=== PATIENT | male | born 1940 | race Caucasian/White ===

== ENCOUNTER 2016-11-09 08:47 | Day surgery (SDC) | payer MEDICARE, BC ==
[2016-11-08 09:38] VITALS: BP 103/56
[2016-11-08 10:17] LABS: HEMOGLOBIN 15.1 g/dL (13.7-18.0)
[2016-11-08 10:31] LABS: BLOOD UREA NITROGEN 17 mg/dL (7-18)
[~2016-11-09] VITALS: Ht 180.3 cm; Wt 100.0 kg
[~2016-11-09 08:47] MED LIST: APIX5TAB PO; ASCO500T8 PO; FURO20TA3 PO; IBUP200T64 PO; LISI2.5T PO; LISI5TAB7 PO; POTA10TA31 PO
[2016-11-09] MEDS ORDERED: LIDOCAINE 2%, 20ML ONE ×2 (09:22→09:51)
[2016-11-09] MEDS ORDERED: FENTANYL PF 100 MCG/2ML ONE ×2 (09:22→09:51)
[2016-11-09] MEDS ORDERED: MIDAZOLAM 1 MG/ML, 5ML ONE ×2 (09:22→09:51)
[2016-11-09] MEDS ORDERED: SODIUM CHLORIDE 0.9% 1,000 ML IV SCH (09:36)
[2016-11-09] MEDS ORDERED: ONDANSETRON 2MG/ML, 2ML IVPush PRN (10:00)
[2016-11-09] MEDS ORDERED: BISACODYL 10 MG SUPP PR PRN (10:00)
[2016-11-09] MEDS ORDERED: ACETAMINOPHEN 325 MG TABLET PO PRN (10:00)
[2016-11-09] MEDS ORDERED: BISACODYL 5 MG EC TABLET PO PRN (10:00)
[2016-11-09] MEDS ORDERED: ZOLPIDEM 5MG TABLET PO PRN (10:00)
[2016-11-09] MEDS ORDERED: ASPIRIN 325 MG TABLET EC PO ONE (10:00)
== END 2016-11-09 15:15 | disposition home or self-care (01) ==
LOC: STAR 08:47
PROVIDERS: ATTEND Internal Medicine Cardiovascular Disease
DX: I25.110 Atherosclerotic heart disease of native coronary artery with unstable angina pectoris (principal); I35.0 Nonrheumatic aortic (valve) stenosis; I10 Essential (primary) hypertension; I25.2 Old myocardial infarction; Z86.718 Personal history of other venous thrombosis and embolism; Z87.891 Personal history of nicotine dependence; I42.9 Cardiomyopathy, unspecified; Z83.3 Family history of diabetes mellitus; Z80.42 Family history of malignant neoplasm of prostate
CPT/HCPCS: 36415; 71020; 80048; 85025; 93005; 93454; C1769; C1894; J2250; J3010; J3490; Q9967

== ENCOUNTER → 2016-11-28 | Outpatient (CLI) | payer MEDICARE, BC ==
[~2016-11-28] MED LIST changes: +OMNIPAQUE 350 MG/ML, 100ML BOTTLE ONE
== END | disposition home or self-care (01) ==
LOC: RAD 13:57
PROVIDERS: ATTEND Thoracic Surgery (Cardiothoracic Vascular Surgery)
DX: I35.0 Nonrheumatic aortic (valve) stenosis (principal)
CPT/HCPCS: 71275; Q9967

== ENCOUNTER 2016-11-30 03:55 | Inpatient (IN) | payer MEDICARE, BC ==
[2016-11-29 16:10] LABS: ASPARTATE AMINO TRANSFERASE 26 U/L (15-37); BLOOD UREA NITROGEN 20 mg/dL (7-18)
[~2016-11-30] VITALS: Ht 180.3 cm; Wt 102.9 kg
[~2016-11-30 03:55] MED LIST changes: -OMNIPAQUE 350 MG/ML, 100ML BOTTLE ONE
[2016-11-30 04:20] VITALS: BP_SYST 112; BP_SYST 124; BP_DIAS 62; BP_DIAS 72
[2016-11-30] MEDS ORDERED: ALBUMIN HUMAN 5% 500 ML IV ONE (04:30)
[2016-11-30] MEDS ORDERED: DO NOT GIVE MC SCH (04:30)
[2016-11-30] MEDS ORDERED: CHLORHEXIDINE MOUTHWASH 15 ML UDC MM SCH (04:30)
[2016-11-30] MEDS: MUPIROCIN OINT 2%, 22GM TP SCH ×2 (05:10→22:52)
[2016-11-30] MEDS: INSULIN ASPART 100 UNITS/ML, PEN SQ-INSULIN SCH (05:11)
[2016-11-30 06:40] VITALS: BP_SYST 105; BP_SYST 112; BP_DIAS 58; BP_DIAS 72
[2016-11-30] MEDS ORDERED: DEXMEDETOMIDINE 200 MCG in SODIUM CHLORIDE 0.9% 48 ML IV SCH (07:30)
[2016-11-30] MEDS ORDERED: REGULAR INSULIN 62.5 UNITS in SODIUM CHLORIDE 0.9% 249.375 ML IV PRN ×2 (07:30→11:26)
[2016-11-30] MEDS ORDERED: EPINEPHRINE 2 MG in SODIUM CHLORIDE 0.9% 248 ML IV SCH (07:30)
[2016-11-30] MEDS ORDERED: PHENYLEPHRINE 10 MG in SODIUM CHLORIDE 0.9% 249 ML IV PRN ×2 (07:30→11:26)
[2016-11-30] MEDS ORDERED: FENTANYL PF 1000 MCG/20ML ONE (07:30)
[2016-11-30] MEDS ORDERED: MANNITOL PMX 20% 500 ML IVPB PRN (07:30)
[2016-11-30] MEDS ORDERED: MIDAZOLAM 10MG/2 ML ONE (07:30)
[2016-11-30] MEDS ORDERED: POTASSIUM CHLORIDE 80 MEQ, SODIUM BICARBONATE 8.4% 10 MEQ, MAGNESIUM SULFATE 0.5 GM, LI... IV PRN (07:30)
[2016-11-30] MEDS: SODIUM CHLORIDE FLUSH 10ML SYR IVF SCH ×3 (09:00→22:51)
[2016-11-30] MEDS ORDERED: PROPOFOL 10 MG/ML, 20ML ONE (09:36)
[2016-11-30] MEDS ORDERED: ROCURONIUM 10 MG/ML ONE (09:36)
[2016-11-30] MEDS ORDERED: PROTAMINE SULFATE 10 MG/ML, 25ML ONE (11:03)
[2016-11-30] MEDS ORDERED: ALBUMIN HUMAN 25% 50 ML ONE (11:03)
[2016-11-30] MEDS ORDERED: CALCIUM CHLORIDE 10%, 10ML SYR ONE (11:03)
[2016-11-30] MEDS ORDERED: HEPARIN 1,000 UNITS/ML, 30ML ONE (11:04)
[2016-11-30] MEDS ORDERED: AMINOCAPROIC ACID 250 MG/ML, 20ML ONE (11:04)
[2016-11-30] MEDS ORDERED: AMIODARONE 50 MG/ML, 3ML ONE (11:04)
[2016-11-30] MEDS ORDERED: LIDOCAINE 2% 100MG/5ML SYRINGE ONE (11:04)
[2016-11-30] MEDS ORDERED: VASOPRESSIN 20 UNIT/ML, 1ML ONE (11:05)
[2016-11-30] MEDS ORDERED: SODIUM CHLORIDE 0.9% 1,000 ML IV PRN (11:26)
[2016-11-30] MEDS ORDERED: DEXMEDETOMIDINE 200 MCG in SODIUM CHLORIDE 0.9% 48 ML IV PRN (11:26)
[2016-11-30] MEDS ORDERED: DOBUTAMINE 250 MG in SODIUM CHLORIDE 0.9% 230 ML IV PRN (11:26)
[2016-11-30] MEDS ORDERED: NITROGLYCERIN/D5W PMX 250 ML IV PRN (11:26)
[2016-11-30] MEDS ORDERED: CLEVIDIPINE 50 ML IV PRN (11:26)
[2016-11-30] MEDS ORDERED: BISACODYL 10 MG SUPP PR PRN (11:30)
[2016-11-30] MEDS ORDERED: INSULIN ASPART 100 UNITS/ML, PEN SQ-INSULIN PRN (11:30)
[2016-11-30] MEDS ORDERED: MEPERIDINE/PF 25MG/0.5ML IVPush PRN (11:30)
[2016-11-30] MEDS ORDERED: GLUCAGON 1 MG IM PRN (11:30)
[2016-11-30] MEDS ORDERED: DEXTROSE 4 GM TAB.CHEW PO PRN (11:30)
[2016-11-30] MEDS ORDERED: ONDANSETRON 2MG/ML, 2ML IVPush PRN (11:30)
[2016-11-30] MEDS ORDERED: ACETAMINOPHEN 650 MG SUPP PR PRN (11:30)
[2016-11-30] MEDS ORDERED: DEXTROSE 50%, 50ML SYRINGE IVPush PRN (11:30)
[2016-11-30] MEDS: KSCALE TO 4.5 IV SCH ×3 (11:30→23:30)
[2016-11-30] MEDS ORDERED: ACETAMINOPHEN 325 MG TABLET PO PRN (11:30)
[2016-11-30] MEDS ORDERED: MIDAZOLAM 1 MG/ML, 5ML IVPush PRN (11:30)
[2016-11-30] MEDS ORDERED: BISACODYL 5 MG EC TABLET PO PRN (11:30)
[2016-11-30] MEDS ORDERED: PROCHLORPERAZINE 5 MG/ML, 2ML IVPush PRN (11:30)
[2016-11-30] MEDS ORDERED: EPINEPHRINE 2 MG in SODIUM CHLORIDE 0.9% 248 ML IV PRN (11:30)
[2016-11-30] MEDS ORDERED: HYDROcodone/APAP 10/325 MG TABLET PO PRN (11:30)
[2016-11-30] MEDS ORDERED: MAGNESIUM SULFATE 1 GM in SODIUM CHLORIDE 0.9% 50 ML IVPB SCH (12:00)
[2016-11-30 12:07] LABS: ABG COLLECTION SITE ARTERIAL LINE
[2016-11-30] MEDS: SODIUM BICARBONATE 1 MEQ/ML, 50ML VIAL IV PRN ×3 (12:29→14:17)
[2016-11-30] MEDS: morphine SULFATE 10 MG/ML, 1ML IVPush PRN ×2 (12:53→18:35)
[2016-11-30] MEDS ORDERED: POTASSIUM CHLORIDE 30 MEQ in SODIUM CHLORIDE 0.9% 100 ML IV ONE (13:30)
[2016-11-30] MEDS: LACTATED RINGERS 500 ML IV PRN ×3 (15:37→19:16)
[2016-11-30] MEDS ORDERED: CEFUROXIME 1.5 GM in SODIUM CHLORIDE 0.9% 50 ML IVPB SCH (18:00)
[2016-11-30] MEDS ORDERED: MORPHINE SULFATE 4 MG/ML, 1ML ONE (18:32)
[2016-11-30] MEDS ORDERED: VANCOMYCIN 1,500 MG in SODIUM CHLORIDE 0.9% 250 ML IVPB SCH (19:30)
[2016-11-30] MEDS: OXYcodone IR 5MG TABLET PO PRN ×2 (20:09→22:58)
[2016-11-30] MEDS ORDERED: MUPIROCIN OINT 2%, 22GM NAS SCH (21:00)
[2016-11-30] MEDS ORDERED: DOCUSATE 100 MG CAPSULE PO SCH (21:00)
[2016-12-01] MEDS: INSULIN ASPART 100 UNITS/ML, PEN SQ-INSULIN SCH ×6 (00:18→21:33)
[2016-12-01] MEDS: OXYcodone IR 5MG TABLET PO PRN ×7 (00:57→21:21)
[2016-12-01 05:09] LABS: BLOOD UREA NITROGEN 16 mg/dL (7-18)
[2016-12-01] MEDS: KSCALE TO 4.5 IV SCH (05:30)
[2016-12-01 05:41] LABS: DIFF TOTAL CELLS COUNTED 100 CELL DIFF; VERIFY COUNTS? YES
[2016-12-01] MEDS ORDERED: VANCOMYCIN 1,500 MG in SODIUM CHLORIDE 0.9% 250 ML IV PRN (07:30)
[2016-12-01] MEDS ORDERED: MAGNESIUM HYDROXIDE 8%, 30ML UDC PO PRN (07:30)
[2016-12-01] MEDS ORDERED: CEFUROXIME 1.5 GM in SODIUM CHLORIDE 0.9% 50 ML IVPB PRN (07:30)
[2016-12-01] MEDS: SODIUM CHLORIDE FLUSH 10ML SYR IVF SCH ×3 (07:36→21:34)
[2016-12-01] MEDS: MUPIROCIN OINT 2%, 22GM TP SCH ×2 (07:37→21:30)
[2016-12-01] MEDS ORDERED: morphine SULFATE 10 MG/ML, 1ML IVPush PRN (08:30)
[2016-12-01] MEDS ORDERED: ACETAMINOPHEN 650 MG SUPP PR PRN (08:30)
[2016-12-01] MEDS ORDERED: VANCOMYCIN 1,500 MG in SODIUM CHLORIDE 0.9% 250 ML IVPB SCH (08:30)
[2016-12-01] MEDS ORDERED: MEPERIDINE/PF 25MG/0.5ML IVPush PRN (08:30)
[2016-12-01] MEDS ORDERED: CEFUROXIME 1.5 GM in SODIUM CHLORIDE 0.9% 50 ML IVPB SCH (08:30)
[2016-12-01] MEDS ORDERED: MIDAZOLAM 1 MG/ML, 5ML IVPush PRN (08:30)
[2016-12-01] MEDS ORDERED: PROCHLORPERAZINE 5 MG/ML, 2ML IVPush PRN (08:30)
[2016-12-01] MEDS ORDERED: BISACODYL 5 MG EC TABLET PO PRN (08:30)
[2016-12-01] MEDS: DOCUSATE 100 MG CAPSULE PO SCH ×2 (08:54→21:25)
[2016-12-01] MEDS: FUROSEMIDE 20 MG/2 ML IV SCH ×2 (08:55→21:26)
[2016-12-01] MEDS: PANTOPRAZOLE 40 MG IV IVPush SCH (08:55)
[2016-12-01] MEDS ORDERED: PANTOPRAZOLE 40 MG IV IVPush SCH (09:00)
[2016-12-01] MEDS ORDERED: ASPIRIN 81 MG TABLET EC PO SCH (09:00)
[2016-12-01] MEDS: MAGNESIUM SULFATE 1 GM in SODIUM CHLORIDE 0.9% 50 ML IVPB SCH (09:04)
[2016-12-01] MEDS: HYDROcodone/APAP 10/325 MG TABLET PO PRN ×2 (10:24→16:00)
[2016-12-01] MEDS ORDERED: CHLORHEXIDINE MOUTHWASH 15 ML UDC MM SCH (15:00)
[2016-12-01] MEDS ORDERED: WARFARIN 5 MG TABLET PO-COUM SCH (18:00)
[2016-12-01 19:12] VITALS: BP 126/71
[2016-12-02 01:46] VITALS: BP 120/69
[2016-12-02 03:44] LABS: BLOOD UREA NITROGEN 18 mg/dL (7-18)
[2016-12-02] MEDS: OXYcodone IR 5MG TABLET PO PRN ×2 (04:37→23:45)
[2016-12-02 06:32] VITALS: BP 114/58
[2016-12-02 08:01] VITALS: BP 110/66
[2016-12-02] MEDS: HYDROcodone/APAP 10/325 MG TABLET PO PRN ×2 (08:11→16:19)
[2016-12-02] MEDS: ASPIRIN 81 MG TABLET EC PO SCH (08:12)
[2016-12-02] MEDS: SODIUM CHLORIDE FLUSH 10ML SYR IVF SCH ×2 (08:13→23:28)
[2016-12-02] MEDS: DOCUSATE 100 MG CAPSULE PO SCH ×2 (08:13→23:33)
[2016-12-02] MEDS: FUROSEMIDE 20 MG/2 ML IV SCH ×2 (08:13→18:00)
[2016-12-02] MEDS: PANTOPRAZOLE 40 MG IV IVPush SCH (08:14)
[2016-12-02] MEDS: MUPIROCIN OINT 2%, 22GM TP SCH ×2 (08:14→23:31)
[2016-12-02] MEDS ORDERED: METOCLOPRAMIDE 10MG TABLET PO PRN (10:00)
[2016-12-02] MEDS ORDERED: FENTANYL PF 100 MCG/2ML ONE (11:50)
[2016-12-02] MEDS ORDERED: MIDAZOLAM 1 MG/ML, 5ML ONE (11:51)
[2016-12-02] MEDS ORDERED: HEPARIN 1,000 UNITS/ML, 10ML ONE (11:51)
[2016-12-02] MEDS ORDERED: LIDOCAINE 2%, 20ML ONE (11:51)
[2016-12-02] MEDS ORDERED: VERAPAMIL 2.5 MG/ML, 2ML ONE (11:51)
[2016-12-02] MEDS ORDERED: TICAGRELOR 90 MG TABLET ONE (11:51)
[2016-12-02] MEDS ORDERED: BIVALIRUDIN 250 MG ONE (11:51)
[2016-12-02] MEDS ORDERED: SODIUM CHLORIDE 0.9% 1,000 ML IV SCH (14:59)
[2016-12-02 15:23] VITALS: BP 121/69
[2016-12-02] MEDS: MAGNESIUM SULFATE 1 GM in SODIUM CHLORIDE 0.9% 50 ML IVPB SCH (16:19)
[2016-12-02] MEDS ORDERED: WARFARIN 5 MG TABLET PO-COUM SCH (18:00)
[2016-12-02] MEDS: INSULIN ASPART 100 UNITS/ML, PEN SQ-INSULIN SCH ×2 (18:01→23:41)
[2016-12-02 18:45] VITALS: BP 106/62
[2016-12-02] MEDS ORDERED: FUROSEMIDE 20 MG/2 ML IV ONE (23:00)
[2016-12-02] MEDS: TICAGRELOR 90 MG TABLET PO SCH (23:32)
[2016-12-03 02:20] VITALS: BP 114/68
[2016-12-03] MEDS: HYDROcodone/APAP 10/325 MG TABLET PO PRN ×4 (03:46→21:30)
[2016-12-03 04:27] LABS: BLOOD UREA NITROGEN 20 mg/dL (7-18)
[2016-12-03] MEDS: INSULIN ASPART 100 UNITS/ML, PEN SQ-INSULIN SCH ×4 (07:36→21:40)
[2016-12-03] MEDS: OXYcodone IR 5MG TABLET PO PRN ×3 (07:36→17:16)
[2016-12-03 08:25] VITALS: BP 128/77
[2016-12-03] MEDS: DOCUSATE 100 MG CAPSULE PO SCH ×2 (09:15→21:30)
[2016-12-03] MEDS: MUPIROCIN OINT 2%, 22GM TP SCH ×2 (09:15→21:33)
[2016-12-03] MEDS: ASPIRIN 81 MG TABLET EC PO SCH (09:15)
[2016-12-03] MEDS: TICAGRELOR 90 MG TABLET PO SCH ×2 (09:15→21:30)
[2016-12-03] MEDS: FUROSEMIDE 20 MG/2 ML IV SCH (09:15)
[2016-12-03] MEDS: SODIUM CHLORIDE FLUSH 10ML SYR IVF SCH ×2 (09:19→21:30)
[2016-12-03] MEDS: GUAIFENESIN 200 MG TABLET PO SCH ×3 (11:34→21:31)
[2016-12-03 13:26] VITALS: BP 118/67
[2016-12-03] MEDS ORDERED: WARFARIN 5 MG TABLET PO-COUM SCH (18:00)
[2016-12-03 19:12] VITALS: BP 103/58
[2016-12-04 01:47] VITALS: BP 120/74
[2016-12-04] MEDS: OXYcodone IR 5MG TABLET PO PRN ×2 (03:59→14:49)
[2016-12-04] MEDS: ALBUTEROL SULFATE 2.5 MG/3 ML NPPB SCH ×5 (04:44→19:35)
[2016-12-04] MEDS: GUAIFENESIN 200 MG TABLET PO SCH ×4 (05:39→20:55)
[2016-12-04 06:05] LABS: BLOOD UREA NITROGEN 21 mg/dL (7-18)
[2016-12-04] MEDS: INSULIN ASPART 100 UNITS/ML, PEN SQ-INSULIN SCH ×6 (07:00→20:57)
[2016-12-04 07:08] VITALS: BP 128/76
[2016-12-04] MEDS: FUROSEMIDE 20 MG/2 ML IV SCH (09:30)
[2016-12-04] MEDS: CARVEDILOL 3.125 MG TABLET PO SCH ×2 (09:30→17:01)
[2016-12-04] MEDS: DOCUSATE 100 MG CAPSULE PO SCH ×2 (09:30→20:55)
[2016-12-04] MEDS: ASPIRIN 81 MG TABLET EC PO SCH (09:30)
[2016-12-04] MEDS: TICAGRELOR 90 MG TABLET PO SCH ×2 (09:30→20:55)
[2016-12-04] MEDS: SODIUM CHLORIDE FLUSH 10ML SYR IVF SCH ×2 (09:31→21:07)
[2016-12-04] MEDS: MUPIROCIN OINT 2%, 22GM TP SCH ×2 (09:33→20:55)
[2016-12-04] MEDS: LISINOPRIL 5 MG TABLET PO SCH (09:33)
[2016-12-04] MEDS: SPIRONOLACTONE 25 MG TABLET PO SCH (10:49)
[2016-12-04] MEDS: POTASSIUM CHLORIDE 20 MEQ TAB.ER.PRT PO SCH (10:49)
[2016-12-04] MEDS ORDERED: BISACODYL 10 MG SUPP PR PRN (12:00)
[2016-12-04] MEDS ORDERED: POTASSIUM CHLORIDE 20 MEQ TAB.ER.PRT PO ONE (12:00)
[2016-12-04] MEDS: BISACODYL 10 MG SUPP PR PRN (12:24)
[2016-12-04 13:55] VITALS: BP 126/80
[2016-12-04] MEDS: ONDANSETRON 2MG/ML, 2ML IVPush PRN (16:45)
[2016-12-04] MEDS ORDERED: WARFARIN 10 MG TABLET PO-COUM SCH (18:00)
[2016-12-04 20:20] VITALS: BP 131/78
[2016-12-04] MEDS: ATORVASTATIN 40 MG TABLET PO SCH (20:55)
[2016-12-04] MEDS: HYDROcodone/APAP 10/325 MG TABLET PO PRN (20:55)
[2016-12-05 01:50] VITALS: BP 129/80
[2016-12-05] MEDS: ONDANSETRON 2MG/ML, 2ML IVPush PRN (04:08)
[2016-12-05 06:09] LABS: BLOOD UREA NITROGEN 21 mg/dL (7-18)
[2016-12-05] MEDS: CARVEDILOL 3.125 MG TABLET PO SCH ×2 (06:27→16:42)
[2016-12-05] MEDS: GUAIFENESIN 200 MG TABLET PO SCH ×4 (06:27→21:59)
[2016-12-05] MEDS: OXYcodone IR 5MG TABLET PO PRN ×2 (06:27→15:17)
[2016-12-05] MEDS: ALBUTEROL SULFATE 2.5 MG/3 ML NPPB SCH (07:00)
[2016-12-05 07:07] VITALS: BP 127/83
[2016-12-05] MEDS: DOCUSATE 100 MG CAPSULE PO SCH ×2 (07:22→22:00)
[2016-12-05] MEDS: LISINOPRIL 5 MG TABLET PO SCH (07:22)
[2016-12-05] MEDS: SPIRONOLACTONE 25 MG TABLET PO SCH (07:22)
[2016-12-05] MEDS: POTASSIUM CHLORIDE 20 MEQ TAB.ER.PRT PO SCH (07:22)
[2016-12-05] MEDS: INSULIN ASPART 100 UNITS/ML, PEN SQ-INSULIN SCH ×4 (07:22→21:00)
[2016-12-05] MEDS: SODIUM CHLORIDE FLUSH 10ML SYR IVF SCH ×2 (07:22→21:57)
[2016-12-05] MEDS: ASPIRIN 81 MG TABLET EC PO SCH (07:23)
[2016-12-05] MEDS: MUPIROCIN OINT 2%, 22GM TP SCH ×2 (07:23→22:00)
[2016-12-05] MEDS: FUROSEMIDE 20 MG/2 ML IV SCH (07:23)
[2016-12-05] MEDS: TICAGRELOR 90 MG TABLET PO SCH ×2 (07:46→22:00)
[2016-12-05 16:02] VITALS: BP 143/82
[2016-12-05] MEDS ORDERED: WARFARIN 5 MG TABLET PO-COUM ONE (18:00)
[2016-12-05 19:45] VITALS: BP 115/73
[2016-12-05] MEDS: ATORVASTATIN 40 MG TABLET PO SCH (22:00)
[2016-12-06 02:19] VITALS: BP 114/68
[2016-12-06] MEDS: CARVEDILOL 3.125 MG TABLET PO SCH ×2 (06:21→18:10)
[2016-12-06] MEDS: GUAIFENESIN 200 MG TABLET PO SCH ×4 (06:21→20:41)
[2016-12-06 06:27] LABS: BLOOD UREA NITROGEN 24 mg/dL (7-18)
[2016-12-06] MEDS: OXYcodone IR 5MG TABLET PO PRN (06:27)
[2016-12-06 06:47] VITALS: BP 114/73
[2016-12-06] MEDS: INSULIN ASPART 100 UNITS/ML, PEN SQ-INSULIN SCH ×4 (08:13→20:42)
[2016-12-06] MEDS: MUPIROCIN OINT 2%, 22GM TP SCH ×2 (08:13→20:42)
[2016-12-06] MEDS: SODIUM CHLORIDE FLUSH 10ML SYR IVF SCH ×2 (08:14→20:43)
[2016-12-06] MEDS: LISINOPRIL 5 MG TABLET PO SCH (08:14)
[2016-12-06] MEDS: TICAGRELOR 90 MG TABLET PO SCH (08:14)
[2016-12-06] MEDS: ASPIRIN 81 MG TABLET EC PO SCH (08:14)
[2016-12-06] MEDS: SPIRONOLACTONE 25 MG TABLET PO SCH (08:14)
[2016-12-06] MEDS: POTASSIUM CHLORIDE 20 MEQ TAB.ER.PRT PO SCH (08:14)
[2016-12-06] MEDS: DOCUSATE 100 MG CAPSULE PO SCH ×2 (08:16→20:42)
[2016-12-06 13:35] VITALS: BP 95/54
[2016-12-06] MEDS: ALBUTEROL SULFATE 2.5 MG/3 ML NPPB PRN (15:29)
[2016-12-06] MEDS ORDERED: WARFARIN 1 MG TABLET PO-COUM ONE (18:00)
[2016-12-06] MEDS: ALBUTEROL/IPRATROPIUM 2.5MG/0.5MG, 3 ML NPPB SCH (20:00)
[2016-12-06 20:01] VITALS: BP 106/63
[2016-12-06] MEDS: ATORVASTATIN 40 MG TABLET PO SCH (20:41)
[2016-12-07 00:49] VITALS: BP 94/56
[2016-12-07] MEDS: GUAIFENESIN 200 MG TABLET PO SCH ×4 (06:16→21:31)
[2016-12-07] MEDS: CARVEDILOL 3.125 MG TABLET PO SCH ×2 (06:16→18:34)
[2016-12-07 06:24] LABS: BLOOD UREA NITROGEN 25 mg/dL (7-18)
[2016-12-07] MEDS: ALBUTEROL/IPRATROPIUM 2.5MG/0.5MG, 3 ML NPPB SCH ×4 (07:00→20:50)
[2016-12-07 07:36] VITALS: BP 98/62
[2016-12-07] MEDS: INSULIN ASPART 100 UNITS/ML, PEN SQ-INSULIN SCH ×4 (07:55→21:47)
[2016-12-07] MEDS ORDERED: HOLD COUMADIN MC PRN (08:00)
[2016-12-07 08:12] VITALS: BP 113/68
[2016-12-07] MEDS: DOCUSATE 100 MG CAPSULE PO SCH ×2 (08:13→21:31)
[2016-12-07] MEDS: POTASSIUM CHLORIDE 20 MEQ TAB.ER.PRT PO SCH (08:13)
[2016-12-07] MEDS: LISINOPRIL 5 MG TABLET PO SCH (08:13)
[2016-12-07] MEDS: MUPIROCIN OINT 2%, 22GM TP SCH ×2 (08:14→21:31)
[2016-12-07] MEDS: SODIUM CHLORIDE FLUSH 10ML SYR IVF SCH ×2 (08:14→21:00)
[2016-12-07] MEDS: SPIRONOLACTONE 25 MG TABLET PO SCH (08:14)
[2016-12-07] MEDS: ALBUTEROL SULFATE 2.5 MG/3 ML NPPB PRN (08:22)
[2016-12-07] MEDS: APAP/CODEINE 300/30MG TABLET PO PRN (11:23)
[2016-12-07 13:25] VITALS: BP 100/61
[2016-12-07 18:33] VITALS: BP 105/60
[2016-12-07] MEDS: ATORVASTATIN 40 MG TABLET PO SCH (21:31)
[2016-12-07] MEDS: CLOPIDOGREL 75 MG TABLET PO SCH (21:31)
[2016-12-08] MEDS: APAP/CODEINE 300/30MG TABLET PO PRN ×4 (01:06→21:02)
[2016-12-08 01:44] VITALS: BP 91/57
[2016-12-08 05:29] LABS: BLOOD UREA NITROGEN 22 mg/dL (7-18)
[2016-12-08 06:18] VITALS: BP 95/59
[2016-12-08] MEDS: GUAIFENESIN 200 MG TABLET PO SCH ×4 (06:20→21:03)
[2016-12-08] MEDS: CARVEDILOL 3.125 MG TABLET PO SCH ×2 (06:20→18:15)
[2016-12-08 06:49] VITALS: BP 111/67
[2016-12-08] MEDS: ALBUTEROL/IPRATROPIUM 2.5MG/0.5MG, 3 ML NPPB SCH ×4 (06:50→20:10)
[2016-12-08] MEDS: INSULIN ASPART 100 UNITS/ML, PEN SQ-INSULIN SCH ×4 (07:00→21:02)
[2016-12-08] MEDS: MUPIROCIN OINT 2%, 22GM TP SCH ×2 (09:00→21:00)
[2016-12-08] MEDS: DOCUSATE 100 MG CAPSULE PO SCH ×2 (09:59→21:02)
[2016-12-08] MEDS: CLOPIDOGREL 75 MG TABLET PO SCH (09:59)
[2016-12-08] MEDS: LISINOPRIL 5 MG TABLET PO SCH (09:59)
[2016-12-08] MEDS: SODIUM CHLORIDE FLUSH 10ML SYR IVF SCH ×2 (09:59→21:00)
[2016-12-08] MEDS: SPIRONOLACTONE 25 MG TABLET PO SCH (09:59)
[2016-12-08] MEDS: POTASSIUM CHLORIDE 20 MEQ TAB.ER.PRT PO SCH (09:59)
[2016-12-08] MEDS: METOCLOPRAMIDE 10MG TABLET PO SCH ×3 (11:50→21:03)
[2016-12-08 13:03] VITALS: BP 97/59
[2016-12-08] MEDS ORDERED: WARFARIN 5 MG TABLET PO-COUM ONE (18:00)
[2016-12-08] MEDS: KETOROLAC 30 MG/1 ML IVPush PRN (18:15)
[2016-12-08] MEDS: ATORVASTATIN 40 MG TABLET PO SCH (21:02)
[2016-12-08 21:23] VITALS: BP 89/60
[2016-12-09 02:48] VITALS: BP 90/58
[2016-12-09 05:54] LABS: BLOOD UREA NITROGEN 20 mg/dL (7-18)
[2016-12-09 06:16] VITALS: BP 97/57
[2016-12-09] MEDS: CARVEDILOL 3.125 MG TABLET PO SCH ×2 (06:17→17:18)
[2016-12-09] MEDS: METOCLOPRAMIDE 10MG TABLET PO SCH ×4 (06:17→20:23)
[2016-12-09] MEDS: APAP/CODEINE 300/30MG TABLET PO PRN ×3 (06:18→22:43)
[2016-12-09] MEDS: GUAIFENESIN 200 MG TABLET PO SCH ×4 (06:20→20:22)
[2016-12-09] MEDS: INSULIN ASPART 100 UNITS/ML, PEN SQ-INSULIN SCH ×4 (07:00→20:22)
[2016-12-09 07:27] VITALS: BP_SYST 103; BP_SYST 90; BP_DIAS 103; BP_DIAS 66
[2016-12-09] MEDS: ALBUTEROL/IPRATROPIUM 2.5MG/0.5MG, 3 ML NPPB SCH ×4 (08:15→19:40)
[2016-12-09] MEDS: MUPIROCIN OINT 2%, 22GM TP SCH ×2 (09:00→20:22)
[2016-12-09] MEDS: SODIUM CHLORIDE FLUSH 10ML SYR IVF SCH ×2 (09:04→20:22)
[2016-12-09] MEDS: POTASSIUM CHLORIDE 20 MEQ TAB.ER.PRT PO SCH (09:04)
[2016-12-09] MEDS: DOCUSATE 100 MG CAPSULE PO SCH ×2 (09:04→20:21)
[2016-12-09] MEDS: SPIRONOLACTONE 25 MG TABLET PO SCH (09:05)
[2016-12-09] MEDS: CLOPIDOGREL 75 MG TABLET PO SCH (09:05)
[2016-12-09] MEDS: LISINOPRIL 5 MG TABLET PO SCH (09:05)
[2016-12-09] MEDS: BISACODYL 10 MG SUPP PR PRN (09:06)
[2016-12-09] MEDS: KETOROLAC 30 MG/1 ML IVPush PRN ×2 (09:06→20:16)
[2016-12-09 14:43] VITALS: BP 108/62
[2016-12-09] MEDS ORDERED: WARFARIN 5 MG TABLET PO-COUM ONE (18:00)
[2016-12-09] MEDS: ATORVASTATIN 40 MG TABLET PO SCH (20:21)
[2016-12-09 20:25] VITALS: BP 91/50
[2016-12-10 02:33] VITALS: BP 96/62
[2016-12-10 05:57] LABS: BLOOD UREA NITROGEN 19 mg/dL (7-18)
[2016-12-10] MEDS: KETOROLAC 30 MG/1 ML IVPush PRN ×2 (06:15→20:57)
[2016-12-10] MEDS: CARVEDILOL 3.125 MG TABLET PO SCH ×2 (06:15→17:11)
[2016-12-10] MEDS: METOCLOPRAMIDE 10MG TABLET PO SCH ×4 (06:35→22:57)
[2016-12-10] MEDS: GUAIFENESIN 200 MG TABLET PO SCH ×4 (06:35→20:29)
[2016-12-10] MEDS: INSULIN ASPART 100 UNITS/ML, PEN SQ-INSULIN SCH ×4 (07:00→20:37)
[2016-12-10 07:24] VITALS: BP 91/57
[2016-12-10] MEDS: ALBUTEROL/IPRATROPIUM 2.5MG/0.5MG, 3 ML NPPB SCH ×4 (07:35→20:00)
[2016-12-10] MEDS: MUPIROCIN OINT 2%, 22GM TP SCH ×2 (08:02→20:06)
[2016-12-10] MEDS: POTASSIUM CHLORIDE 20 MEQ TAB.ER.PRT PO SCH (08:41)
[2016-12-10] MEDS: LISINOPRIL 5 MG TABLET PO SCH (08:41)
[2016-12-10] MEDS: DOCUSATE 100 MG CAPSULE PO SCH ×3 (08:41→20:57)
[2016-12-10] MEDS: SODIUM CHLORIDE FLUSH 10ML SYR IVF SCH ×2 (08:41→20:29)
[2016-12-10] MEDS: CLOPIDOGREL 75 MG TABLET PO SCH (08:41)
[2016-12-10] MEDS: SPIRONOLACTONE 25 MG TABLET PO SCH (08:41)
[2016-12-10 13:37] VITALS: BP 99/62
[2016-12-10 17:13] VITALS: BP 104/64
[2016-12-10] MEDS ORDERED: WARFARIN 2.5 MG TABLET PO-COUM ONE (18:00)
[2016-12-10 18:56] VITALS: BP 109/68
[2016-12-10] MEDS: ATORVASTATIN 40 MG TABLET PO SCH (20:29)
[2016-12-10] MEDS: APAP/CODEINE 300/30MG TABLET PO PRN (22:54)
[2016-12-11 01:19] VITALS: BP 104/68
[2016-12-11] MEDS: CARVEDILOL 3.125 MG TABLET PO SCH ×3 (05:16→20:54)
[2016-12-11] MEDS: GUAIFENESIN 200 MG TABLET PO SCH ×4 (05:16→20:55)
[2016-12-11] MEDS: METOCLOPRAMIDE 10MG TABLET PO SCH ×4 (05:18→20:55)
[2016-12-11 05:36] LABS: BLOOD UREA NITROGEN 20 mg/dL (7-18)
[2016-12-11 07:29] VITALS: BP 106/65
[2016-12-11] MEDS: ALBUTEROL/IPRATROPIUM 2.5MG/0.5MG, 3 ML NPPB SCH ×4 (07:50→20:00)
[2016-12-11] MEDS: INSULIN ASPART 100 UNITS/ML, PEN SQ-INSULIN SCH ×4 (09:12→20:55)
[2016-12-11] MEDS: SODIUM CHLORIDE FLUSH 10ML SYR IVF SCH ×2 (09:13→20:55)
[2016-12-11] MEDS: POTASSIUM CHLORIDE 20 MEQ TAB.ER.PRT PO SCH (09:13)
[2016-12-11] MEDS: CLOPIDOGREL 75 MG TABLET PO SCH (09:14)
[2016-12-11] MEDS: LISINOPRIL 5 MG TABLET PO SCH (09:14)
[2016-12-11] MEDS: SPIRONOLACTONE 25 MG TABLET PO SCH (09:14)
[2016-12-11] MEDS: DOCUSATE 100 MG CAPSULE PO SCH ×2 (09:14→20:55)
[2016-12-11] MEDS: MUPIROCIN OINT 2%, 22GM TP SCH ×2 (09:14→20:55)
[2016-12-11] MEDS: ACETAMINOPHEN 325 MG TABLET PO PRN (11:12)
[2016-12-11] MEDS: KETOROLAC 30 MG/1 ML IVPush PRN (16:34)
[2016-12-11] MEDS ORDERED: WARFARIN 2.5 MG TABLET PO-COUM ONE (18:00)
[2016-12-11] MEDS: ATORVASTATIN 40 MG TABLET PO SCH (20:54)
[2016-12-11 21:30] VITALS: BP 104/60
[2016-12-12 01:20] VITALS: BP 107/71
[2016-12-12] MEDS: GUAIFENESIN 200 MG TABLET PO SCH ×4 (05:59→21:00)
[2016-12-12] MEDS: CARVEDILOL 3.125 MG TABLET PO SCH ×2 (06:00→18:00)
[2016-12-12 06:43] LABS: BLOOD UREA NITROGEN 38 mg/dL (7-18)
[2016-12-12] MEDS: ALBUTEROL/IPRATROPIUM 2.5MG/0.5MG, 3 ML NPPB SCH ×2 (06:50→10:13)
[2016-12-12] MEDS: INSULIN ASPART 100 UNITS/ML, PEN SQ-INSULIN SCH (07:00)
[2016-12-12 07:02] VITALS: BP 116/71
[2016-12-12] MEDS: MUPIROCIN OINT 2%, 22GM TP SCH (07:24)
[2016-12-12] MEDS: DOCUSATE 100 MG CAPSULE PO SCH ×2 (08:01→21:00)
[2016-12-12] MEDS: LISINOPRIL 5 MG TABLET PO SCH (08:02)
[2016-12-12] MEDS: SPIRONOLACTONE 25 MG TABLET PO SCH (08:04)
[2016-12-12] MEDS: SODIUM CHLORIDE FLUSH 10ML SYR IVF SCH ×2 (08:13→21:00)
[2016-12-12] MEDS: POTASSIUM CHLORIDE 20 MEQ TAB.ER.PRT PO SCH (08:13)
[2016-12-12] MEDS ORDERED: SODIUM CHLORIDE 0.9% 1,000 ML IV SCH (08:30)
[2016-12-12] MEDS: CLOPIDOGREL 75 MG TABLET PO SCH (09:00)
[2016-12-12] MEDS: ASPIRIN 81 MG TABLET CHEW PO SCH (09:00)
[2016-12-12 12:09] VITALS: BP 105/64
[2016-12-12] MEDS ORDERED: SODIUM CHLORIDE 0.9%, 500ML IVBOLUS ONE (16:30)
[2016-12-12] MEDS ORDERED: OMNIPAQUE 350 MG/ML, 100ML BOTTLE ONE (17:19)
[2016-12-12] MEDS ORDERED: WARFARIN 2.5 MG TABLET PO-COUM ONE (18:00)
[2016-12-12 18:48] VITALS: BP 108/62
[2016-12-12 19:58] VITALS: BP 146/63
[2016-12-12] MEDS: ATORVASTATIN 40 MG TABLET PO SCH (21:00)
[2016-12-12] MEDS ORDERED: MIDAZOLAM 1 MG/ML, 2ML IVPush ONE (22:00)
[2016-12-13 02:30] VITALS: BP 102/66
[2016-12-13] MEDS: ASPIRIN 81 MG TABLET CHEW PO SCH (05:36)
[2016-12-13] MEDS: GUAIFENESIN 200 MG TABLET PO SCH ×4 (05:36→21:00)
[2016-12-13 05:52] LABS: BLOOD UREA NITROGEN 27 mg/dL (7-18)
[2016-12-13] MEDS: POTASSIUM CHLORIDE 20 MEQ TAB.ER.PRT PO SCH (08:00)
[2016-12-13 08:01] VITALS: BP 112/65
[2016-12-13] MEDS: SPIRONOLACTONE 25 MG TABLET PO SCH (08:13)
[2016-12-13] MEDS: DOCUSATE 100 MG CAPSULE PO SCH ×2 (08:14→21:00)
[2016-12-13] MEDS: LISINOPRIL 5 MG TABLET PO SCH (08:14)
[2016-12-13] MEDS: CLOPIDOGREL 75 MG TABLET PO SCH (08:14)
[2016-12-13] MEDS: CARVEDILOL 3.125 MG TABLET PO SCH ×2 (08:14→16:04)
[2016-12-13] MEDS: SODIUM CHLORIDE 0.9% 1,000 ML IV SCH ×2 (09:47→20:51)
[2016-12-13] MEDS: SODIUM CHLORIDE FLUSH 10ML SYR IVF SCH ×2 (09:47→21:00)
[2016-12-13] MEDS: FILTER, DISP 1.2 MICRON FOR TPN/PVN IV PRN (12:27)
[2016-12-13 15:18] VITALS: BP 92/57
[2016-12-13] MEDS ORDERED: DEXTROSE 10% 500 ML IV PRN (17:00)
[2016-12-13] MEDS ORDERED: FAT EMULSIONS IV SCH (17:00)
[2016-12-13] MEDS ORDERED: DEXTROSE 70% IV SCH (17:00)
[2016-12-13] MEDS ORDERED: [UNRECOGNIZED DRUG - OTHER] IV SCH (17:00)
[2016-12-13] MEDS ORDERED: DEXTROSE 50%, 50ML SYRINGE IVPush PRN (17:00)
[2016-12-13] MEDS ORDERED: AMINO ACID 10% IV SCH (17:00)
[2016-12-13] MEDS ORDERED: WARFARIN 2 MG TABLET PO-COUM ONE (18:00)
[2016-12-13 20:10] VITALS: BP 109/64
[2016-12-13] MEDS: ATORVASTATIN 40 MG TABLET PO SCH (21:00)
[2016-12-13] MEDS: INSULIN REGULAR LOW DOSE Q6H X 48HRS SQ-INSULIN SCH (21:01)
[2016-12-13] MEDS ORDERED: LORazepam 2 MG/ML, 1ML IVPush ONE (22:00)
[2016-12-14] VITALS (12 sets, daily range): BP systolic 108–119; BP diastolic 65–73
[2016-12-14] MEDS: INSULIN REGULAR LOW DOSE Q6H X 48HRS SQ-INSULIN SCH ×4 (02:54→21:09)
[2016-12-14 05:00] LABS: BLOOD UREA NITROGEN 17 mg/dL (7-18)
[2016-12-14] MEDS: ASPIRIN 81 MG TABLET CHEW PO SCH (06:00)
[2016-12-14] MEDS: GUAIFENESIN 200 MG TABLET PO SCH ×4 (06:00→20:50)
[2016-12-14] MEDS: CARVEDILOL 3.125 MG TABLET PO SCH ×2 (06:00→16:19)
[2016-12-14] MEDS: GUAIFENESIN/DM 200-20MG, 10ML UDC PO PRN ×2 (08:00→23:51)
[2016-12-14] MEDS: LISINOPRIL 5 MG TABLET PO SCH ×2 (08:24→08:32)
[2016-12-14] MEDS: POTASSIUM CHLORIDE 20 MEQ TAB.ER.PRT PO SCH (08:25)
[2016-12-14] MEDS: SODIUM CHLORIDE FLUSH 10ML SYR IVF SCH ×2 (08:25→21:09)
[2016-12-14] MEDS: DOCUSATE 100 MG CAPSULE PO SCH ×2 (08:25→20:50)
[2016-12-14] MEDS: CLOPIDOGREL 75 MG TABLET PO SCH (08:31)
[2016-12-14] MEDS: SPIRONOLACTONE 25 MG TABLET PO SCH (08:31)
[2016-12-14] MEDS ORDERED: SODIUM CHLORIDE 0.9% 1,000 ML IV SCH (09:00)
[2016-12-14] MEDS: ALBUTEROL SULFATE 2.5 MG/3 ML NPPB PRN ×2 (14:35→18:50)
[2016-12-14] MEDS ORDERED: DEXTROSE 70% IV SCH (17:00)
[2016-12-14] MEDS ORDERED: FAT EMULSIONS IV SCH (17:00)
[2016-12-14] MEDS ORDERED: [UNRECOGNIZED DRUG - OTHER] IV SCH (17:00)
[2016-12-14] MEDS ORDERED: AMINO ACID 10% IV SCH (17:00)
[2016-12-14] MEDS ORDERED: WARFARIN 5 MG TABLET PO-COUM ONE (18:00)
[2016-12-14] MEDS: ATORVASTATIN 40 MG TABLET PO SCH (20:50)
[2016-12-15 02:10] VITALS: BP 191/72
[2016-12-15] MEDS: INSULIN REGULAR LOW DOSE Q6H X 48HRS SQ-INSULIN SCH ×2 (03:00→09:13)
[2016-12-15] MEDS: ASPIRIN 81 MG TABLET CHEW PO SCH (04:46)
[2016-12-15] MEDS: GUAIFENESIN 200 MG TABLET PO SCH ×4 (04:46→21:36)
[2016-12-15] MEDS: CARVEDILOL 3.125 MG TABLET PO SCH ×2 (04:46→17:59)
[2016-12-15 06:55] LABS: BLOOD UREA NITROGEN 11 mg/dL (7-18)
[2016-12-15 07:19] VITALS: BP 124/74
[2016-12-15] MEDS: POTASSIUM CHLORIDE 20 MEQ TAB.ER.PRT PO SCH ×2 (08:00→09:10)
[2016-12-15] MEDS ORDERED: CLOPIDOGREL 75 MG TABLET PO ONE (08:30)
[2016-12-15] MEDS: DOCUSATE 100 MG CAPSULE PO SCH ×2 (09:00→21:00)
[2016-12-15] MEDS: SODIUM CHLORIDE FLUSH 10ML SYR IVF SCH ×2 (09:10→21:36)
[2016-12-15] MEDS: SPIRONOLACTONE 25 MG TABLET PO SCH (09:10)
[2016-12-15] MEDS: PANTOPRAZOLE 40 MG IV IVPush SCH (09:10)
[2016-12-15] MEDS: CLOPIDOGREL 75 MG TABLET PO SCH (09:10)
[2016-12-15] MEDS: LISINOPRIL 5 MG TABLET PO SCH (09:10)
[2016-12-15] MEDS: ALBUTEROL SULFATE 2.5 MG/3 ML NPPB PRN ×3 (10:24→20:26)
[2016-12-15] MEDS: INSULIN ASPART 100 UNITS/ML, PEN SQ-INSULIN SCH ×3 (11:00→21:37)
[2016-12-15] MEDS: POTASSIUM CHLORIDE 20 MEQ PACKET PO SCH (12:14)
[2016-12-15 13:17] VITALS: BP 121/70
[2016-12-15] MEDS ORDERED: FAT EMULSIONS IV SCH ×2 (17:00)
[2016-12-15] MEDS ORDERED: DEXTROSE 70% IV SCH ×2 (17:00)
[2016-12-15] MEDS ORDERED: AMINO ACID 10% IV SCH ×2 (17:00)
[2016-12-15] MEDS ORDERED: [UNRECOGNIZED DRUG - OTHER] IV SCH ×2 (17:00)
[2016-12-15] MEDS: FILTER, DISP 1.2 MICRON FOR TPN/PVN IV PRN (17:59)
[2016-12-15] MEDS ORDERED: WARFARIN 7.5 MG TABLET PO-COUM ONE (18:00)
[2016-12-15 18:45] VITALS: BP 96/56
[2016-12-15] MEDS ORDERED: INSULIN REGULAR LOW DOSE QDAY SQ-INSULIN SCH (21:00)
[2016-12-15] MEDS: ATORVASTATIN 40 MG TABLET PO SCH (21:36)
[2016-12-15 21:39] VITALS: BP 97/61
[2016-12-16 01:30] VITALS: BP 100/63
[2016-12-16 05:32] LABS: BLOOD UREA NITROGEN 14 mg/dL (7-18)
[2016-12-16] MEDS: ASPIRIN 81 MG TABLET CHEW PO SCH (06:16)
[2016-12-16] MEDS: GUAIFENESIN 200 MG TABLET PO SCH ×4 (06:16→20:31)
[2016-12-16] MEDS: CARVEDILOL 3.125 MG TABLET PO SCH ×2 (06:16→17:16)
[2016-12-16] MEDS: INSULIN ASPART 100 UNITS/ML, PEN SQ-INSULIN SCH ×4 (07:00→20:33)
[2016-12-16 07:20] VITALS: BP 107/67
[2016-12-16] MEDS: DOCUSATE 100 MG CAPSULE PO SCH ×2 (09:00→21:00)
[2016-12-16] MEDS: POTASSIUM CHLORIDE 20 MEQ PACKET PO SCH (10:03)
[2016-12-16] MEDS: SODIUM CHLORIDE FLUSH 10ML SYR IVF SCH ×2 (10:03→22:49)
[2016-12-16] MEDS: PANTOPRAZOLE 40 MG IV IVPush SCH (10:03)
[2016-12-16] MEDS: SPIRONOLACTONE 25 MG TABLET PO SCH (10:04)
[2016-12-16] MEDS: CLOPIDOGREL 75 MG TABLET PO SCH (10:04)
[2016-12-16] MEDS: LISINOPRIL 5 MG TABLET PO SCH (10:04)
[2016-12-16 14:41] VITALS: BP 136/76
[2016-12-16] MEDS ORDERED: FAT EMULSIONS IV SCH (17:00)
[2016-12-16] MEDS ORDERED: DEXTROSE 70% IV SCH (17:00)
[2016-12-16] MEDS ORDERED: [UNRECOGNIZED DRUG - OTHER] IV SCH (17:00)
[2016-12-16] MEDS ORDERED: AMINO ACID 10% IV SCH (17:00)
[2016-12-16] MEDS: ACETAMINOPHEN 325 MG TABLET PO PRN ×2 (17:22→22:48)
[2016-12-16] MEDS ORDERED: WARFARIN 3 MG TABLET PO-COUM ONE (18:00)
[2016-12-16 19:12] VITALS: BP 93/57
[2016-12-16] MEDS: ATORVASTATIN 40 MG TABLET PO SCH (20:31)
[2016-12-17 02:00] VITALS: BP 98/61
[2016-12-17] MEDS: GUAIFENESIN 200 MG TABLET PO SCH ×4 (05:29→21:04)
[2016-12-17] MEDS: CARVEDILOL 3.125 MG TABLET PO SCH ×2 (05:30→17:36)
[2016-12-17] MEDS: ASPIRIN 81 MG TABLET CHEW PO SCH (05:30)
[2016-12-17 05:43] LABS: BLOOD UREA NITROGEN 14 mg/dL (7-18)
[2016-12-17 08:24] VITALS: BP 116/65
[2016-12-17] MEDS: POTASSIUM CHLORIDE 20 MEQ PACKET PO SCH (08:52)
[2016-12-17] MEDS: PANTOPRAZOLE 40 MG IV IVPush SCH (08:54)
[2016-12-17] MEDS: SODIUM CHLORIDE FLUSH 10ML SYR IVF SCH ×2 (08:54→21:03)
[2016-12-17] MEDS: INSULIN ASPART 100 UNITS/ML, PEN SQ-INSULIN SCH ×4 (08:54→21:00)
[2016-12-17] MEDS: SPIRONOLACTONE 25 MG TABLET PO SCH (08:55)
[2016-12-17] MEDS: DOCUSATE 100 MG CAPSULE PO SCH ×2 (08:55→21:00)
[2016-12-17] MEDS: LISINOPRIL 5 MG TABLET PO SCH (08:55)
[2016-12-17] MEDS: CLOPIDOGREL 75 MG TABLET PO SCH (08:56)
[2016-12-17] MEDS: ACETAMINOPHEN 325 MG TABLET PO PRN ×3 (08:59→22:22)
[2016-12-17 12:41] VITALS: BP 110/72
[2016-12-17] MEDS ORDERED: [UNRECOGNIZED DRUG - OTHER] IV SCH (17:00)
[2016-12-17] MEDS ORDERED: FAT EMULSIONS IV SCH (17:00)
[2016-12-17] MEDS ORDERED: DEXTROSE 70% IV SCH (17:00)
[2016-12-17] MEDS ORDERED: AMINO ACID 10% IV SCH (17:00)
[2016-12-17] MEDS ORDERED: WARFARIN 3 MG TABLET PO-COUM ONE (18:00)
[2016-12-17 19:30] VITALS: BP 117/68
[2016-12-17] MEDS: APIXABAN 5 MG TABLET PO SCH (21:04)
[2016-12-17] MEDS: ATORVASTATIN 40 MG TABLET PO SCH (21:04)
[2016-12-18 03:00] VITALS: BP 121/75
[2016-12-18 05:24] LABS: BLOOD UREA NITROGEN 11 mg/dL (7-18)
[2016-12-18] MEDS: CARVEDILOL 3.125 MG TABLET PO SCH (06:28)
[2016-12-18] MEDS: GUAIFENESIN 200 MG TABLET PO SCH (06:28)
[2016-12-18] MEDS: ASPIRIN 81 MG TABLET CHEW PO SCH (06:28)
[2016-12-18] MEDS: INSULIN ASPART 100 UNITS/ML, PEN SQ-INSULIN SCH (07:00)
[2016-12-18] MEDS ORDERED: PANTOPROZOLE 40MG TABLET PO SCH (07:30)
[2016-12-18 07:31] VITALS: BP 112/72
[2016-12-18] MEDS ORDERED: SPIR25TA PO (08:36)
[2016-12-18] MEDS ORDERED: ATOR40TA78 PO (08:36)
[2016-12-18] MEDS ORDERED: CARV3.1212 PO (08:36)
[2016-12-18] MEDS ORDERED: CLOP75TA PO (08:36)
[2016-12-18] MEDS ORDERED: PANT40TA5 PO (08:39)
[2016-12-18] MEDS: CLOPIDOGREL 75 MG TABLET PO SCH (08:40)
[2016-12-18] MEDS: SPIRONOLACTONE 25 MG TABLET PO SCH (08:41)
[2016-12-18] MEDS: APIXABAN 5 MG TABLET PO SCH (08:41)
[2016-12-18] MEDS: LISINOPRIL 5 MG TABLET PO SCH (08:41)
[2016-12-18] MEDS: DOCUSATE 100 MG CAPSULE PO SCH (08:42)
[2016-12-18] MEDS: SODIUM CHLORIDE FLUSH 10ML SYR IVF SCH (08:42)
[2016-12-18] MEDS: POTASSIUM CHLORIDE 20 MEQ PACKET PO SCH (08:42)
[2016-12-18] MEDS: ACETAMINOPHEN 325 MG TABLET PO PRN (10:20)
== END 2016-12-18 13:09 | disposition home health service (06) | DRG 217 ==
LOC: 5SO 03:55 → CCU 08:30 → CSU 11:19 → 5SO 12-01 18:21
PROVIDERS: ADMIT Thoracic Surgery (Cardiothoracic Vascular Surgery); ATTEND Thoracic Surgery (Cardiothoracic Vascular Surgery)
PROC: 5A2204Z Restoration of Cardiac Rhythm, Single (ICD-10-PCS; 2016-11-30)
PROC: B246ZZ4 Ultrasonography of Right and Left Heart, Transesophageal (ICD-10-PCS; 2016-11-30)
PROC: 5A1221Z Performance of Cardiac Output, Continuous (ICD-10-PCS; 2016-11-30)
PROC: 5A1213Z Performance of Cardiac Pacing, Intermittent (ICD-10-PCS; 2016-11-30)
PROC: 02RF08Z Replacement of Aortic Valve with Zooplastic Tissue, Open Approach (ICD-10-PCS; principal; 2016-11-30 08:30)
PROC: B2101ZZ Fluoroscopy of Single Coronary Artery using Low Osmolar Contrast (ICD-10-PCS; 2016-12-02)
PROC: 02703DZ Dilation of Coronary Artery, One Artery with Intraluminal Device, Percutaneous Approach (ICD-10-PCS; 2016-12-02)
PROC: 02HV33Z Insertion of Infusion Device into Superior Vena Cava, Percutaneous Approach (ICD-10-PCS; 2016-12-12)
PROC: B5181ZA Fluoroscopy of Superior Vena Cava using Low Osmolar Contrast, Guidance (ICD-10-PCS; 2016-12-12)
PROC: B548ZZA Ultrasonography of Superior Vena Cava, Guidance (ICD-10-PCS; 2016-12-12)
PROC: 30233N1 Transfusion of Nonautologous Red Blood Cells into Peripheral Vein, Percutaneous Approach (ICD-10-PCS; 2016-12-14)
DX: I35.0 Nonrheumatic aortic (valve) stenosis (principal); I50.42 Chronic combined systolic (congestive) and diastolic (congestive) heart failure; D62 Acute posthemorrhagic anemia; D68.69 Other thrombophilia; K56.7 Ileus, unspecified; I10 Essential (primary) hypertension; E11.9 Type 2 diabetes mellitus without complications; D72.829 Elevated white blood cell count, unspecified; E78.5 Hyperlipidemia, unspecified; I95.9 Hypotension, unspecified; I25.5 Ischemic cardiomyopathy; I44.0 Atrioventricular block, first degree; I48.91 Unspecified atrial fibrillation; I70.0 Atherosclerosis of aorta; Z79.01 Long term (current) use of anticoagulants; Z86.711 Personal history of pulmonary embolism; I25.2 Old myocardial infarction; Z82.49 Family history of ischemic heart disease and other diseases of the circulatory system; Z86.718 Personal history of other venous thrombosis and embolism; Z87.891 Personal history of nicotine dependence; Z95.5 Presence of coronary angioplasty implant and graft; R06.89 Other abnormalities of breathing; I25.119 Atherosclerotic heart disease of native coronary artery with unspecified angina pectoris
CPT/HCPCS: 36415; 36569; 36600; 71010; 71020; 71275; 74000; 74177; 74250; 76937; 77001; 80048; 80053; 81003; 82040; 82330; 82800; 82803; 82810; 82947; 82962; 83036; 83735; 84100; 84132; 84134; 84295; 84478; 85014; 85018; 85025; 85049; 85347; 85610; 85730; 86850; 86900; 86923; 87081; 87324; 88305; 92928; 93005; 93312; 93321; 93325; 93454; 93880; 93931; 93970; 94002; 94640; C1768; C1769; C1876; C1894; J0583; J0610; J0697; J1644; J1815; J1885; J2175; J2250; J2405; J2704; J2720; J3010; J3370; J3475; J3480; J3490; J7120; J7613; J7620; P9045; P9047; Q9967; C1725; C1751; C1760; C1887; C9113; J0171; J0282; J1940; J2060; J2270; J2370; J3420; J7030; J7040; J7050; P9016

== ENCOUNTER → 2017-05-10 | Outpatient (CLI) | payer MEDICARE, BC ==
[~2017-05-10] MED LIST changes: +ATOR40TA78 PO; +CARV3.1212 PO; +CLOP75TA PO; +PANT40TA5 PO; +SPIR25TA PO
== END | disposition home or self-care (01) ==
LOC: CFH 08:27 → EDSTATUS 09:00
PROVIDERS: ATTEND Physician Assistant Medical
DX: I51.7 Cardiomegaly (principal); I10 Essential (primary) hypertension; E78.5 Hyperlipidemia, unspecified; I25.2 Old myocardial infarction; Z95.5 Presence of coronary angioplasty implant and graft; Z95.2 Presence of prosthetic heart valve; Z79.01 Long term (current) use of anticoagulants; Z87.891 Personal history of nicotine dependence
CPT/HCPCS: 93306

== ENCOUNTER 2017-07-18 11:06 | Inpatient (IN) | payer MEDICARE, BC ==
[~2017-07-18] VITALS: Ht 180.3 cm; Wt 89.9 kg
[2017-07-18] MEDS ORDERED: ASPIRIN 81 MG TABLET CHEW ONE (11:43)
[2017-07-18] MEDS ORDERED: ACET-1600 PO (11:49)
[2017-07-18] MEDS ORDERED: CARV12.52 PO (11:49)
[2017-07-18 11:58] LABS: HEMATOCRIT 43.7 % (39.2-51.8); HEMOGLOBIN 15.1 g/dL (13.7-18.0); WHITE BLOOD COUNT 7.3 x10^3/uL (3.4-10)
[2017-07-18] MEDS ORDERED: SODIUM CHLORIDE FLUSH 10ML SYR IVF ONE (12:00)
[2017-07-18] MEDS ORDERED: ASPIRIN 81 MG TABLET CHEW PO ONE (12:00)
[2017-07-18 12:10] LABS: ASPARTATE AMINO TRANSFERASE 23 U/L (15-37); BLOOD UREA NITROGEN 15 mg/dL (7-18)
[2017-07-18 12:18] LABS: IS PT STATUS REG ER OR PRE ER? YES
[2017-07-18] MEDS ORDERED: OMNIPAQUE 350 MG/ML, 100ML BOTTLE ONE (14:06)
[2017-07-18 15:48] VITALS: BP 124/78
[2017-07-18] MEDS ORDERED: ONDANSETRON 2MG/ML, 2ML IVPush PRN (17:00)
[2017-07-18] MEDS ORDERED: ACETAMINOPHEN 325 MG TABLET PO PRN (17:00)
[2017-07-18] MEDS ORDERED: ONDANSETRON ODT 4 MG PO PRN (17:00)
[2017-07-18] MEDS: INSULIN ASPART 100 UNITS/ML, PEN SQ-INSULIN SCH ×2 (17:40→20:50)
[2017-07-18 18:57] LABS: IS PT STATUS REG ER OR PRE ER? NO
[2017-07-18 19:20] VITALS: BP 116/73
[2017-07-18] MEDS: INSULIN DETEMIR 100 UNITS/ML, PEN SQ-INSULIN SCH (20:46)
[2017-07-18] MEDS: CARVEDILOL 12.5 MG TABLET PO SCH (20:46)
[2017-07-18] MEDS: APIXABAN 5 MG TABLET PO SCH (20:46)
[2017-07-18] MEDS ORDERED: INSULIN ASPART 100 UNITS/ML, PEN SQ-INSULIN SCH (21:00)
[2017-07-19 00:57] LABS: IS PT STATUS REG ER OR PRE ER? NO
[2017-07-19 02:00] VITALS: BP 117/72
[2017-07-19] MEDS: ASPIRIN 81 MG TABLET EC PO SCH (05:20)
[2017-07-19 05:28] LABS: HEMOGLOBIN 14.7 g/dL (13.7-18.0); WHITE BLOOD COUNT 7.4 x10^3/uL (3.4-10)
[2017-07-19 05:57] LABS: ASPARTATE AMINO TRANSFERASE 20 U/L (15-37); BLOOD UREA NITROGEN 17 mg/dL (7-18)
[2017-07-19 07:30] VITALS: BP 113/73
[2017-07-19] MEDS: INSULIN ASPART 100 UNITS/ML, PEN SQ-INSULIN SCH ×4 (08:20→20:06)
[2017-07-19] MEDS: INSULIN DETEMIR 100 UNITS/ML, PEN SQ-INSULIN SCH ×2 (08:20→16:58)
[2017-07-19] MEDS: CARVEDILOL 12.5 MG TABLET PO SCH ×2 (10:03→19:56)
[2017-07-19] MEDS: PANTOPROZOLE 40MG TABLET PO SCH (10:04)
[2017-07-19] MEDS: APIXABAN 5 MG TABLET PO SCH ×2 (10:04→19:54)
[2017-07-19] MEDS: CLOPIDOGREL 75 MG TABLET PO SCH (10:04)
[2017-07-19] MEDS: SPIRONOLACTONE 25 MG TABLET PO SCH (10:04)
[2017-07-19] MEDS: LISINOPRIL 5 MG TABLET PO SCH (10:05)
[2017-07-19 12:42] VITALS: BP 103/66
[2017-07-19] MEDS: metFORMIN 500 MG TABLET PO SCH (16:52)
[2017-07-19 19:04] VITALS: BP 97/59
[2017-07-20 03:08] VITALS: BP 116/71
[2017-07-20] MEDS: ASPIRIN 81 MG TABLET EC PO SCH (05:57)
[2017-07-20] MEDS: INSULIN DETEMIR 100 UNITS/ML, PEN SQ-INSULIN SCH ×2 (06:01→17:35)
[2017-07-20 07:28] VITALS: BP_SYST 116; BP_SYST 143; BP_DIAS 71
[2017-07-20] MEDS: INSULIN ASPART 100 UNITS/ML, PEN SQ-INSULIN SCH ×4 (08:18→20:21)
[2017-07-20] MEDS: SPIRONOLACTONE 25 MG TABLET PO SCH (08:19)
[2017-07-20] MEDS: metFORMIN 500 MG TABLET PO SCH (08:19)
[2017-07-20] MEDS: CARVEDILOL 12.5 MG TABLET PO SCH ×2 (08:19→20:13)
[2017-07-20] MEDS: PANTOPROZOLE 40MG TABLET PO SCH (08:19)
[2017-07-20] MEDS: APIXABAN 5 MG TABLET PO SCH ×2 (08:19→20:13)
[2017-07-20] MEDS: CLOPIDOGREL 75 MG TABLET PO SCH (08:19)
[2017-07-20] MEDS: LISINOPRIL 5 MG TABLET PO SCH (08:20)
[2017-07-20 12:54] VITALS: BP 108/69
[2017-07-20] MEDS ORDERED: INSULIN ASPART 100 UNITS/ML, PEN SQ-INSULIN ONE (13:00)
[2017-07-20] MEDS ORDERED: INSULIN ASPART 100 UNITS/ML, PEN SQ-INSULIN SCH (16:00)
[2017-07-20 20:09] VITALS: BP 108/71
[2017-07-21 03:32] VITALS: BP 105/64
[2017-07-21] MEDS: ASPIRIN 81 MG TABLET EC PO SCH (05:49)
[2017-07-21] MEDS: INSULIN DETEMIR 100 UNITS/ML, PEN SQ-INSULIN SCH (05:53)
[2017-07-21 06:16] LABS: BLOOD UREA NITROGEN 19 mg/dL (7-18)
[2017-07-21] MEDS: INSULIN ASPART 100 UNITS/ML, PEN SQ-INSULIN SCH (07:00)
[2017-07-21 09:02] VITALS: BP 114/71
[2017-07-21] MEDS: CARVEDILOL 12.5 MG TABLET PO SCH (09:20)
[2017-07-21] MEDS: SPIRONOLACTONE 25 MG TABLET PO SCH (09:21)
[2017-07-21] MEDS: PANTOPROZOLE 40MG TABLET PO SCH (09:21)
[2017-07-21] MEDS: APIXABAN 5 MG TABLET PO SCH (09:21)
[2017-07-21] MEDS: LISINOPRIL 5 MG TABLET PO SCH (09:21)
[2017-07-21] MEDS: CLOPIDOGREL 75 MG TABLET PO SCH (09:21)
[2017-07-21] MEDS ORDERED: INSU100I28 SQ-INSULIN (10:39)
[2017-07-21] MEDS ORDERED: INSU100I18 SQ-INSULIN (10:39)
== END 2017-07-21 12:25 | disposition home health service (06) | DRG 638 ==
LOC: ED 14:36 → EDIP 14:52 → 5SO 15:39 → DCLOUNGE 07-21 11:40
PROVIDERS: ADMIT Hospitalist; ATTEND Hospitalist
DX: E11.65 Type 2 diabetes mellitus with hyperglycemia (principal); I42.9 Cardiomyopathy, unspecified; I08.1 Rheumatic disorders of both mitral and tricuspid valves; E87.1 Hypo-osmolality and hyponatremia; R07.89 Other chest pain; I25.10 Atherosclerotic heart disease of native coronary artery without angina pectoris; I10 Essential (primary) hypertension; K21.9 Gastro-esophageal reflux disease without esophagitis; Z79.01 Long term (current) use of anticoagulants; Z79.4 Long term (current) use of insulin; Z83.3 Family history of diabetes mellitus; Z86.711 Personal history of pulmonary embolism; Z86.718 Personal history of other venous thrombosis and embolism; Z87.891 Personal history of nicotine dependence; Z95.3 Presence of xenogenic heart valve; Z95.5 Presence of coronary angioplasty implant and graft; Z88.2 Allergy status to sulfonamides
CPT/HCPCS: 36415; 71010; 71275; 80048; 80053; 82947; 82962; 83036; 83880; 84443; 84484; 85025; 85379; 85610; 85730; 93005; 93306; 99285; J1815; Q9967

== ENCOUNTER → 2017-11-07 | Outpatient (CLI) | payer MEDICARE, BC ==
[~2017-11-07] MED LIST changes: +ACET-1600 PO; +CARV12.52 PO; +INSU100I18 SQ-INSULIN; +INSU100I28 SQ-INSULIN
[2017-11-07 18:14] LABS: ALBUMIN 3.7 g/dL (3.4-5.0); ANION GAP 8 mmol/L (5-15); CHLORIDE 107 mmol/L (98-107)
[2017-11-07 18:18] LABS: ALANINE AMINOTRANSFERASE 35 U/L (12-78); ALKALINE PHOSPHATASE 58 U/L (45-117); BILIRUBIN,TOTAL 0.6 mg/dL (0.2-1.0); CHOLESTEROL, TOTAL 109 mg/dL (140-239); CREATININE 0.87 mg/dL (0.7-1.3); HDL CHOL % 33 % (26-37); HDL CHOLESTEROL (DIRECT) 36 mg/dL (40-60); LDL CHOLESTEROL,CALCULATED 57 mg/dL (54-169); LDL/HDL RATIO 1.6 (0.5-3.0); TOTAL PROTEIN 8.3 g/dL (6.4-8.2); TRIGLYCERIDES 82 mg/dL (50-200); VLDL CHOLESTEROL 16 mg/dL (0-25)
[2017-11-07 18:24] LABS: HEMOGLOBIN A1C 5.8 % (4.2-6.3)
== END | disposition home or self-care (01) ==
LOC: LAB 13:31
PROVIDERS: ATTEND Internal Medicine Cardiovascular Disease
DX: E11.9 Type 2 diabetes mellitus without complications (principal); E78.2 Mixed hyperlipidemia
CPT/HCPCS: 36415; 80053; 80061; 83036

== ENCOUNTER → 2018-05-18 | Outpatient (CLI) | payer MEDICARE, BC | END | disposition home or self-care (01) | LOC: CVU 10:48 | PROVIDERS: ATTEND Physician Assistant Medical | DX: I10 Essential (primary) hypertension (principal); I21.9 Acute myocardial infarction, unspecified; Z95.2 Presence of prosthetic heart valve | CPT/HCPCS: 93306 ==

== ENCOUNTER → 2018-07-20 | Outpatient (CLI) | payer MEDICARE, BC ==
[2018-07-20 10:48] LABS: MEAN CORPUSCULAR HEMOGLOBIN 34.3 pg (27.5-34.5); MEAN CORPUSCULAR VOLUME 101.1 fL (81-97); MEAN PLATELET VOLUME 8.5 fL (7.4-10.4); PLATELET COUNT 171 x10^3/uL (130-400); RED BLOOD COUNT 4.17 x10^6/uL (4.38-5.82)
[2018-07-20 10:57] LABS: CHLORIDE 106 mmol/L (98-107)
[2018-07-20 11:03] LABS: ALANINE AMINOTRANSFERASE 35 U/L (12-78); ALBUMIN 3.6 g/dL (3.4-5.0); ALKALINE PHOSPHATASE 62 U/L (45-117); ANION GAP 5 mmol/L (5-15); BILIRUBIN,TOTAL 0.8 mg/dL (0.2-1.0); CHOL/HDL RATIO 2.7; CHOLESTEROL, TOTAL 97 mg/dL (140-239); CREATININE 0.97 mg/dL (0.7-1.3); HDL CHOL % 37 % (26-37); HDL CHOLESTEROL (DIRECT) 36 mg/dL (40-60); LDL CHOLESTEROL,CALCULATED 41 mg/dL (54-169); LDL/HDL RATIO 1.1 (0.5-3.0); TOTAL PROTEIN 7.9 g/dL (6.4-8.2); TRIGLYCERIDES 101 mg/dL (50-200); VLDL CHOLESTEROL 20 mg/dL (0-25)
[2018-07-20 12:33] LABS: HEMOGLOBIN A1C 5.7 % (4.2-6.3)
== END | disposition home or self-care (01) ==
LOC: LAB 10:33
PROVIDERS: ATTEND Internal Medicine Cardiovascular Disease
DX: E11.9 Type 2 diabetes mellitus without complications (principal); E78.2 Mixed hyperlipidemia; I25.10 Atherosclerotic heart disease of native coronary artery without angina pectoris; I42.9 Cardiomyopathy, unspecified
CPT/HCPCS: 36415; 80053; 80061; 83036; 85027

== ENCOUNTER → 2019-07-08 | Outpatient (CLI) | payer MEDICARE, BC ==
[2019-07-08 10:04] LABS: MEAN CORPUSCULAR HEMOGLOBIN 34.2 pg (27.5-34.5); MEAN CORPUSCULAR HGB CONC 33.4 g/dL (33.2-36.2); MEAN CORPUSCULAR VOLUME 102.4 fL (81-97); MEAN PLATELET VOLUME 8.4 fL (7.4-10.4); PLATELET COUNT 185 x10^3/uL (130-400); RED BLOOD COUNT 3.99 x10^6/uL (4.38-5.82); RED CELL DISTRIBUTION WIDTH 14.1 % (9.4-14.8)
[2019-07-08 10:13] LABS: ALANINE AMINOTRANSFERASE 32 U/L (12-78); ALBUMIN 3.6 g/dL (3.4-5.0); ANION GAP 4 mmol/L (5-15); CHLORIDE 105 mmol/L (98-107)
[2019-07-08 10:15] LABS: ALKALINE PHOSPHATASE 55 U/L (45-117); BILIRUBIN,TOTAL 0.7 mg/dL (0.2-1.0); CHOL/HDL RATIO 3.3; CHOLESTEROL, TOTAL 112 mg/dL (140-239); CREATININE 0.93 mg/dL (0.7-1.3); HDL CHOL % 30 % (26-37); HDL CHOLESTEROL (DIRECT) 34 mg/dL (40-60); LDL CHOLESTEROL,CALCULATED 53 mg/dL (54-169); LDL/HDL RATIO 1.6 (0.5-3.0); TOTAL PROTEIN 8.3 g/dL (6.4-8.2); TRIGLYCERIDES 124 mg/dL (50-200); VLDL CHOLESTEROL 25 mg/dL (0-25)
[2019-07-08 10:58] LABS: HEMOGLOBIN A1C 6.3 % (4.2-6.3)
== END | disposition home or self-care (01) ==
LOC: LAB 09:40
PROVIDERS: ATTEND Family Medicine
DX: E78.2 Mixed hyperlipidemia (principal); E11.9 Type 2 diabetes mellitus without complications; R06.02 Shortness of breath
CPT/HCPCS: 36415; 80053; 80061; 83036; 85027

== ENCOUNTER → 2020-01-03 | Outpatient (CLI) | payer MEDICARE, BC ==
[2020-01-03 10:36] LABS: BASOPHILS # (AUTO) 0.03 x10^3/uL (0-0.1); BASOPHILS % (AUTO) 0 % (0-1); EOSINOPHILS # (AUTO) 0.08 x10^3/uL (0-0.4); EOSINOPHILS % (AUTO) 1 % (1-7); LYMPHOCYTES # (AUTO) 1.96 x10^3/uL (1-3.4); LYMPHOCYTES % (AUTO) 21 % (22-44); MD NO; MEAN CORPUSCULAR HGB CONC 33.5 g/dL (33.2-36.2); MEAN CORPUSCULAR VOLUME 101.5 fL (81-97); MEAN PLATELET VOLUME 8.6 fL (7.4-10.4); MONOCYTES # (AUTO) 1.08 x10^3/uL (0.2-0.8); MONOCYTES % (AUTO) 11 % (2-9); NEUTROPHILS # (AUTO) 6.36 x10^3/uL (1.8-6.8); NEUTROPHILS % (AUTO) 67 % (42-75); PLATELET COUNT 214 x10^3/uL (130-400); RED BLOOD COUNT 3.93 x10^6/uL (4.38-5.82); RED CELL DISTRIBUTION WIDTH 14.1 % (9.4-14.8)
[2020-01-03 10:46] LABS: ALANINE AMINOTRANSFERASE 32 U/L (12-78); ALBUMIN 3.4 g/dL (3.4-5.0); ANION GAP 7 mmol/L (5-15); CALCIUM 9.2 mg/dL (8.5-10.1); CHLORIDE 107 mmol/L (98-107); CHOLESTEROL, TOTAL 106 mg/dL (140-239); CREATININE 1.02 mg/dL (0.7-1.3)
[2020-01-03 10:54] LABS: ALKALINE PHOSPHATASE 67 U/L (45-117); BILIRUBIN,TOTAL 0.7 mg/dL (0.2-1.0); CHOL/HDL RATIO 3.1; FREE T4 (FREE THYROXINE) 1.25 ng/dL (0.76-1.46); HDL CHOL % 32 % (26-37); HDL CHOLESTEROL (DIRECT) 34 mg/dL (40-60); LDL CHOLESTEROL,CALCULATED 50 mg/dL (54-169); LDL/HDL RATIO 1.5 (0.5-3.0); TOTAL PROTEIN 8.5 g/dL (6.4-8.2); TRIGLYCERIDES 109 mg/dL (50-200); VLDL CHOLESTEROL 22 mg/dL (0-25)
== END | disposition home or self-care (01) ==
LOC: LAB 10:01
PROVIDERS: ATTEND Internal Medicine Cardiovascular Disease
DX: E11.9 Type 2 diabetes mellitus without complications (principal); E78.2 Mixed hyperlipidemia; I50.9 Heart failure, unspecified
CPT/HCPCS: 36415; 80053; 80061; 82043; 83036; 84439; 84443; 85025

== ENCOUNTER 2020-01-22 20:15 | Inpatient (IN) | payer MEDICARE, BC ==
[~2020-01-22] VITALS: Ht 180.3 cm; Wt 95.8 kg
[2020-01-22] MEDS ORDERED: SODIUM CHLORIDE FLUSH 10ML SYR IVF ONE (21:00)
--- NOTE | 2020-01-22 21:31 | NUR ---
CT PENDING LAB/CREATINE
[2020-01-22 21:55] LABS: BASOPHILS # (AUTO) 0.03 x10^3/uL (0-0.1); BASOPHILS % (AUTO) 0 % (0-1); EOSINOPHILS # (AUTO) 0.15 x10^3/uL (0-0.4); EOSINOPHILS % (AUTO) 1 % (1-7); LYMPHOCYTES # (AUTO) 1.94 x10^3/uL (1-3.4); LYMPHOCYTES % (AUTO) 16 % (22-44); MD NO; MEAN CORPUSCULAR HEMOGLOBIN 33.6 pg (27.5-34.5); MEAN CORPUSCULAR HGB CONC 33.4 g/dL (33.2-36.2); MEAN CORPUSCULAR VOLUME 100.7 fL (81-97); MEAN PLATELET VOLUME 9.4 fL (7.4-10.4); MONOCYTES % (AUTO) 12 % (2-9); NEUTROPHILS # (AUTO) 8.58 x10^3/uL (1.8-6.8); NEUTROPHILS % (AUTO) 71 % (42-75); PLATELET COUNT 271 x10^3/uL (130-400); RED BLOOD COUNT 3.52 x10^6/uL (4.38-5.82); RED CELL DISTRIBUTION WIDTH 13.9 % (9.4-14.8)
[2020-01-22 21:57] LABS: ALANINE AMINOTRANSFERASE 40 U/L (12-78); ALBUMIN 2.9 g/dL (3.4-5.0); ANION GAP 9 mmol/L (5-15); CALCIUM 8.8 mg/dL (8.5-10.1); CHLORIDE 105 mmol/L (98-107)
[2020-01-22 21:59] LABS: ALKALINE PHOSPHATASE 72 U/L (45-117); BILIRUBIN,TOTAL 0.5 mg/dL (0.2-1.0); TOTAL PROTEIN 8.2 g/dL (6.4-8.2)
[2020-01-22] MEDS ORDERED: OMNIPAQUE 350 MG/ML, 100ML BOTTLE ONE (22:23)
--- NOTE | 2020-01-22 22:31 | NUR ---
PATIENT GIVEN URINAL TO URINATE, PATIENT STATED THAT HE PREFERRED TO HAVE HIS AID HIM WITH THE PROCESS.
[2020-01-22 22:53] LABS: MICROSCOPIC AUTO
--- NOTE | 2020-01-22 23:06 | NUR ---
PATIENT UPDATED ON PLAN OF CARE. NO NOTED NEEDS AT THIS TIME. WILL CONTINUE TO MONITOR. VITAL SIGNS REMAIN UNCHANGED.
[2020-01-22] MEDS ORDERED: SODIUM CHLORIDE FLUSH 10ML SYR IVF PRN (23:30)
[2020-01-22] MEDS ORDERED: CEFOTETAN PMX 1GM/50ML 50 ML IV ONE (23:30)
[2020-01-22] MEDS ORDERED: SODIUM CHLORIDE 0.9% 1,000 ML IV SCH (23:39)
[2020-01-23] MEDS ORDERED: morphine SULFATE 10 MG/ML, 1ML IVPush PRN
[2020-01-23] MEDS ORDERED: ONDANSETRON 2MG/ML, 2ML IVPush PRN
--- NOTE | 2020-01-23 | NUR ---
PATIENT GIVEN VANILLA PUDDING AND SPRITE. PATIENT TOLERATED WELL.
[2020-01-23] MEDS ORDERED: CEFTRIAXONE PMX 1GM/50ML 50 ML ONE (00:01)
[2020-01-23] MEDS ORDERED: CEFOTETAN PMX 1GM/50ML 50 ML ONE (00:13)
--- NOTE | 2020-01-23 00:23 | NUR ---
ANTIBIOTIC THERAPY STARTED. VERIFIED WITH PATIENT THAT BLOOD CULTURES X 2 WAS COLLECTED PRIOR TO INITIATED OF ANITBIOTICS. PATIENT VERBALIZED UNDERSTANDING OF POSSIBLE COMPLICATIONS RELATED TO THERAPY. NO NOTED ACUTE DISTRESS. TOLERATING INTERVENTIONS WELL. WILL BE TRANSFERED TO ADMISSION FLOOR. REPORT GIVEN TO ADMISSION RN ON TELEPHONE
[2020-01-23 02:00] VITALS: BP 105/71
[2020-01-23 02:01] VITALS: BP 105/71
[2020-01-23 06:49] LABS: MEAN CORPUSCULAR HEMOGLOBIN 33.2 pg (27.5-34.5); MEAN CORPUSCULAR HGB CONC 33.2 g/dL (33.2-36.2); MEAN CORPUSCULAR VOLUME 100.1 fL (81-97); MEAN PLATELET VOLUME 9.1 fL (7.4-10.4); PLATELET COUNT 230 x10^3/uL (130-400); RED BLOOD COUNT 3.38 x10^6/uL (4.38-5.82); RED CELL DISTRIBUTION WIDTH 13.8 % (9.4-14.8)
[2020-01-23] MEDS: INSULIN LISPRO 100 UNITS/ML, PEN SQ-INSULIN SCH ×4 (07:00→21:00)
[2020-01-23 07:02] LABS: CHLORIDE 107 mmol/L (98-107)
[2020-01-23 07:08] LABS: ANION GAP 7 mmol/L (5-15); CALCIUM 8.4 mg/dL (8.5-10.1)
[2020-01-23 07:34] LABS: BASOPHILS # (AUTO) 0.03 x10^3/uL (0-0.1); BASOPHILS % (AUTO) 0 % (0-1); EOSINOPHILS # (AUTO) 0.29 x10^3/uL (0-0.4); EOSINOPHILS % (AUTO) 3 % (1-7); LYMPHOCYTES # (AUTO) 1.72 x10^3/uL (1-3.4); LYMPHOCYTES % (AUTO) 17 % (22-44); MD SCAN; MONOCYTES # (AUTO) 1.47 x10^3/uL (0.2-0.8); MONOCYTES % (AUTO) 15 % (2-9); NEUTROPHILS # (AUTO) 6.53 x10^3/uL (1.8-6.8); NEUTROPHILS % (AUTO) 65 % (42-75)
[2020-01-23 07:35] VITALS: BP 128/82
[2020-01-23] MEDS: CARVEDILOL 3.125 MG TABLET PO SCH ×2 (10:26→21:26)
[2020-01-23] MEDS ORDERED: LIDOCAINE 1%, 10ML ONE (10:53)
[2020-01-23] MEDS ORDERED: FLUMAZENIL 0.1 MG/1 ML, 5ML ONE (10:56)
[2020-01-23] MEDS ORDERED: NALOXONE 1 MG/ML, 2ML ONE (10:56)
[2020-01-23] MEDS ORDERED: FENTANYL PF 100 MCG/2ML ONE (10:56)
[2020-01-23] MEDS ORDERED: MIDAZOLAM 1 MG/ML, 5ML ONE (10:56)
[2020-01-23] MEDS: PIPERACILLIN/TAZO/PMX 3.375GM 50 ML IV SCH ×2 (12:42→18:26)
[2020-01-23] MEDS: SPIRONOLACTONE 25 MG TABLET PO SCH (12:42)
[2020-01-23] MEDS: PANTOPRAZOLE 40MG TABLET PO SCH (12:42)
[2020-01-23] MEDS: LISINOPRIL 5 MG TABLET PO SCH (12:42)
[2020-01-23 14:05] VITALS: BP 114/73
[2020-01-23 21:24] VITALS: BP 117/71
[2020-01-23] MEDS: SODIUM CHLORIDE 0.9% 1,000 ML IV SCH (23:39)
[2020-01-24] MEDS: PIPERACILLIN/TAZO/PMX 3.375GM 50 ML IV SCH ×2 (00:11→06:35)
[2020-01-24 00:12] VITALS: BP 127/79
[2020-01-24 03:50] VITALS: BP 106/67
[2020-01-24 06:10] LABS: ANION GAP 8 mmol/L (5-15); CALCIUM 8.6 mg/dL (8.5-10.1); CHLORIDE 106 mmol/L (98-107)
[2020-01-24 06:11] LABS: CREATININE 0.92 mg/dL (0.7-1.3)
[2020-01-24 06:12] LABS: BASOPHILS # (AUTO) 0.02 x10^3/uL (0-0.1); BASOPHILS % (AUTO) 0 % (0-1); EOSINOPHILS # (AUTO) 0.24 x10^3/uL (0-0.4); EOSINOPHILS % (AUTO) 3 % (1-7); LYMPHOCYTES # (AUTO) 1.48 x10^3/uL (1-3.4); LYMPHOCYTES % (AUTO) 20 % (22-44); MD NO; MEAN CORPUSCULAR HEMOGLOBIN 33.2 pg (27.5-34.5); MEAN CORPUSCULAR HGB CONC 32.9 g/dL (33.2-36.2); MEAN CORPUSCULAR VOLUME 100.9 fL (81-97); MEAN PLATELET VOLUME 8.7 fL (7.4-10.4); MONOCYTES % (AUTO) 18 % (2-9); NEUTROPHILS # (AUTO) 4.37 x10^3/uL (1.8-6.8); NEUTROPHILS % (AUTO) 59 % (42-75); PLATELET COUNT 229 x10^3/uL (130-400); RED BLOOD COUNT 3.18 x10^6/uL (4.38-5.82); RED CELL DISTRIBUTION WIDTH 13.6 % (9.4-14.8)
[2020-01-24] MEDS: PANTOPRAZOLE 40MG TABLET PO SCH (06:35)
[2020-01-24 06:59] VITALS: BP 147/80
[2020-01-24] MEDS: INSULIN LISPRO 100 UNITS/ML, PEN SQ-INSULIN SCH ×2 (07:00→11:00)
[2020-01-24] MEDS: SPIRONOLACTONE 25 MG TABLET PO SCH (08:57)
[2020-01-24] MEDS: CARVEDILOL 3.125 MG TABLET PO SCH (08:57)
[2020-01-24] MEDS: LISINOPRIL 5 MG TABLET PO SCH (08:58)
[2020-01-24] MEDS: SODIUM CHLORIDE 0.9% 1,000 ML IV SCH (09:39)
[2020-01-24] MEDS ORDERED: GLIP10TA13 (10:24)
[2020-01-24] MEDS ORDERED: METF500T17 PO (10:24)
[2020-01-24] MEDS ORDERED: CARV3.122 PO (10:44)
[2020-01-24] MEDS ORDERED: CIPR500T3 PO (10:44)
[2020-01-24] MEDS ORDERED: METR500T PO (10:44)
== END 2020-01-24 11:54 | disposition home or self-care (01) | DRG 863 ==
LOC: ED 21:55 → EDIP 23:57 → 4NE 01-23 01:10 → DCLOUNGE 01-24 11:47
PROVIDERS: ADMIT Internal Medicine; ATTEND Internal Medicine
PROC: 0W9G3ZZ Drainage of Peritoneal Cavity, Percutaneous Approach (ICD-10-PCS; principal; 2020-01-23)
DX: T81.49XA Infection following a procedure, other surgical site, initial encounter (principal); L02.211 Cutaneous abscess of abdominal wall; D72.829 Elevated white blood cell count, unspecified; E11.9 Type 2 diabetes mellitus without complications; I08.0 Rheumatic disorders of both mitral and aortic valves; I10 Essential (primary) hypertension; K21.9 Gastro-esophageal reflux disease without esophagitis; I25.10 Atherosclerotic heart disease of native coronary artery without angina pectoris; Z79.02 Long term (current) use of antithrombotics/antiplatelets; Z79.899 Other long term (current) drug therapy; Z83.3 Family history of diabetes mellitus; Z86.711 Personal history of pulmonary embolism; Z86.718 Personal history of other venous thrombosis and embolism; Z90.49 Acquired absence of other specified parts of digestive tract; Z95.3 Presence of xenogenic heart valve; Z95.5 Presence of coronary angioplasty implant and graft; Z91.81 History of falling; Z88.2 Allergy status to sulfonamides
CPT/HCPCS: 36415; 49406; 74177; 80048; 80053; 81001; 82962; 83605; 83690; 85025; 87040; 96374; 99156; 99157; C1894; G0378; J2250; J2543; J3010; Q9967; J2310; J3490; J7030

== ENCOUNTER → 2020-02-11 | Outpatient (CLI) | payer MEDICARE, BC ==
[~2020-02-11] MED LIST changes: +CARV3.122 PO; +CIPR500T3 PO; +GLIP10TA13; +METF500T17 PO; +METR500T PO
== END | disposition home or self-care (01) ==
LOC: CVU 15:47
PROVIDERS: ATTEND Internal Medicine Cardiovascular Disease
DX: I05.1 Rheumatic mitral insufficiency (principal); Z95.4 Presence of other heart-valve replacement
CPT/HCPCS: 93306

== ENCOUNTER 2020-07-23 09:38 | Outpatient (CLI) | payer MEDICARE, BC ==
[~2020-07-23 09:38] MED LIST changes: -PANT40TA5 PO; +PANT40TA6 PO
[2020-07-23 09:53] LABS: BASOPHILS % (AUTO) 1 % (0-1); EOSINOPHILS % (AUTO) 2 % (1-7); LYMPHOCYTES % (AUTO) 32 % (22-44); MD NO; MEAN PLATELET VOLUME 8.5 fL (7.4-10.4); MONOCYTES % (AUTO) 14 % (2-9); NEUTROPHILS % (AUTO) 51 % (42-75); PLATELET COUNT 188 x10^3/uL (130-400)
[2020-07-23 10:02] LABS: ALANINE AMINOTRANSFERASE 29 U/L (12-78); ALBUMIN 3.7 g/dL (3.4-5.0); ANION GAP 5 mmol/L (5-15); CALCIUM 8.7 mg/dL (8.5-10.1); CHLORIDE 108 mmol/L (98-107); CREATININE 1.04 mg/dL (0.7-1.3)
[2020-07-23 10:05] LABS: ALKALINE PHOSPHATASE 70 U/L (45-117); BILIRUBIN,TOTAL 0.8 mg/dL (0.2-1.0); CHOL/HDL RATIO 3.1; CHOLESTEROL, TOTAL 105 mg/dL (140-239); HDL CHOL % 32 % (26-37); HDL CHOLESTEROL (DIRECT) 34 mg/dL (40-60); LDL CHOLESTEROL,CALCULATED 48 mg/dL (54-169); LDL/HDL RATIO 1.4 (0.5-3.0); TOTAL PROTEIN 8.2 g/dL (6.4-8.2); TRIGLYCERIDES 113 mg/dL (50-200); VLDL CHOLESTEROL 23 mg/dL (0-25)
== END 2020-07-23 23:59 | disposition home or self-care (01) ==
LOC: LAB 09:38
PROVIDERS: ATTEND Nurse Practitioner Family
DX: E11.9 Type 2 diabetes mellitus without complications (principal); I25.10 Atherosclerotic heart disease of native coronary artery without angina pectoris; I35.0 Nonrheumatic aortic (valve) stenosis
CPT/HCPCS: 36415; 80053; 80061; 85025